=== PATIENT | female | born 1990 | race American Indian/Alaskan Native ===

== ENCOUNTER 2017-07-07 23:18 | Emergency (ER) | payer SELFPAY ==
[2017-07-07 23:54] VITALS: BP 107/73
[2017-07-08 00:37] LABS: Basophils % (Auto) 0.5 % (0.0-1.8); Eosinophils # (Auto) 0.1 K/mm3 (0.0-0.4); Eosinophils % (Auto) 1.8 % (0.0-4.3); Hematocrit 39.9 % (30.3-42.9); Hemoglobin 13.9 gm/dl (10.1-14.3); Lymphocytes # (Auto) 2.6 K/mm3 (1.2-5.4); Lymphocytes % (Auto) 36.4 % (13.4-35.0); Mean Corpuscular HGB Conc 35 % (30-34); Mean Corpuscular Hemoglobin 32 pg (28-32); Mean Corpuscular Volume 91 fl (79-97); Monocytes # (Auto) 0.3 K/mm3 (0.0-0.8); Monocytes % (Auto) 4.9 % (0.0-7.3); Platelet Count 207 K/mm3 (140-440); Red Blood Count 4.41 M/mm3 (3.65-5.03); Red Cell Distribution Width 13.1 % (13.2-15.2)
[2017-07-08 00:49] LABS: Bacteria,Urine 2+ /HPF (Negative); Bilirubin,Urine NEG (Negative); Blood,Urine NEG (Negative); Color,Urine Yellow (Yellow); Mucus,Urine 3+ /HPF; Protein,Urine <15 mg/dL mg/dL (Negative); RBC,Urine < 1.0 /HPF (0.0-6.0)
[2017-07-08 01:03] LABS: Alanine Aminotransferase 12 units/L (7-56); Albumin 4.7 g/dL (3.9-5); BUN/Creatinine Ratio 21; Blood Urea Nitrogen 19 mg/dL (7-17); Calcium 9.2 mg/dL (8.4-10.2); Hemolysis Index 5; Lipase 38 units/L (13-60)
== END 2017-07-08 04:43 | disposition left against medical advice (07) ==
LOC: ED 23:18
DX: R10.9 Unspecified abdominal pain (principal); Z53.21 Procedure and treatment not carried out due to patient leaving prior to being seen by health care provider
CPT/HCPCS: 36415; 80053; 81001; 83690; 85025

== ENCOUNTER 2018-02-18 14:49 | Emergency (ER) | payer MEDICAID, OTHER ==
[2018-02-18 16:29] VITALS: BP 116/74
[2018-02-18 17:20] LABS: Basophils % (Auto) 0.5 % (0.0-1.8); Eosinophils % (Auto) 0.8 % (0.0-4.3); Hematocrit 38.4 % (30.3-42.9); Hemoglobin 13.1 gm/dl (10.1-14.3); Lymphocytes # (Auto) 1.6 K/mm3 (1.2-5.4); Lymphocytes % (Auto) 26.8 % (13.4-35.0); Mean Corpuscular HGB Conc 34 % (30-34); Mean Corpuscular Hemoglobin 31 pg (28-32); Mean Corpuscular Volume 91 fl (79-97); Monocytes # (Auto) 0.3 K/mm3 (0.0-0.8); Monocytes % (Auto) 5.1 % (0.0-7.3); Platelet Count 247 K/mm3 (140-440); Red Blood Count 4.23 M/mm3 (3.65-5.03); Red Cell Distribution Width 12.7 % (13.2-15.2)
[2018-02-18 17:39] LABS: Bilirubin,Urine NEG (Negative); Blood,Urine NEG (Negative); Color,Urine Yellow (Yellow); Mucus,Urine 3+ /HPF
== END 2018-02-18 21:00 | disposition left against medical advice (07) ==
LOC: ED 14:49
DX: R10.9 Unspecified abdominal pain (principal); Z53.21 Procedure and treatment not carried out due to patient leaving prior to being seen by health care provider
CPT/HCPCS: 36415; 81001; 84702; 85025; 86850; 86900; 86901

== ENCOUNTER 2018-10-14 07:28 | Emergency (ER) | payer OTHER ==
[2018-10-14] MEDS ORDERED: ZOFRAN IV ONE ×2 (08:37→10:15)
[2018-10-14] MEDS ORDERED: NACL 0.9% 1000 ML 1,000 ML IV ONE ×2 (08:37→09:58)
--- NOTE | 2018-10-14 08:43 | Emergency Department Report ---
ED HPI - General Chief complaint: Nausea/Vomiting/Diarrhea Stated complaint: 10WKS/NAUSEA Time Seen by Provider: 10/14/18 08:30 Source: patient, EMS Mode of arrival: Wheelchair Limitations: No Limitations - History of Present Illness Initial comments: 27-year-old female , currently 10 weeks , presents to the ED with nausea and vomiting during her entire , worsening over the last 3 days. The patient denies fever, abdominal pain. Patient reports she is unable to keep anything down. Patient states she contacted her CLAIMS SUPPORT SPECIALIST and they were supposed to call in a prescription for nausea medicine, however when she arrived to the pharmacy it had not been called in. Patient reports generalized weakness, cramping in her hands. OB: [facility] MD Complaint: other (vomiting) -: days(s) (3) Severity: severe Consistency: constant Improves with: none Worsens with: eating Associated symptoms: nausea/vomiting. denies: vaginal bleeding Vaginal bleeding: none :: Yes Number of weeks : 10 Pre-nam care: followed by OB ([facility]) - Related Data : 6 Para: 3 Ab: 2 Previous Rx's Medication Instructions Recorded Last Taken Type Promethazine [Phenergan TAB] 25 mg PO Q6HR PRN #20 tab 10/14/18 Unknown Rx Promethazine [Phenergan] 25 mg MD Q6HR PRN #10 supp.rect 10/14/18 Unknown Rx Allergies Allergy/AdvReac Type Severity Reaction Status Date / Time No Known Allergies Allergy Verified 10/14/18 07:58 ED Review of Systems ROS: Stated complaint: 10WKS/NAUSEA Other details as noted in HPI Comment: All other systems reviewed and negative Constitutional: denies: chills, fever Gastrointestinal: nausea, vomiting. denies: abdominal pain, diarrhea Genitourinary: other (denies vag bleeding) ED Past Medical Hx - Social History Smoking Status: Never Smoker Substance Use Type: None - Medications Home Medications: Home Medications Medication Instructions Recorded Confirmed Last Taken Type Promethazine [Phenergan TAB] 25 mg PO Q6HR PRN #20 tab 10/14/18 Unknown Rx Promethazine [Phenergan] 25 mg MD Q6HR PRN #10 supp.rect 10/14/18 Unknown Rx ED Physical Exam - General Limitations: No Limitations General appearance: alert, in no apparent distress - Head Head exam: Present: atraumatic, normocephalic - Eye Eye exam: Present: normal appearance - ENT ENT exam: Present: mucous membranes moist - Neck Neck exam: Present: normal inspection - Respiratory Respiratory exam: Present: normal lung sounds bilaterally. Absent: respiratory distress - Cardiovascular Cardiovascular Exam: Present: normal rhythm, tachycardia - GI/Abdominal GI/Abdominal exam: Present: soft. Absent: distended, tenderness - Extremities Exam Extremities exam: Present: normal inspection - Neurological Exam Neurological exam: Present: alert, oriented X3 - Psychiatric Psychiatric exam: Present: normal affect, normal mood - Skin Skin exam: Present: warm, dry, intact, normal color ED Course Vital Signs 10/14/18 10/14/18 10/14/18 08:00 09:10 12:16 Temperature 98.3 F Pulse Rate 108 H 82 Respiratory 22 15 16 Rate Blood Pressure 114/70 Blood Pressure 104/65 [Right] O2 Sat by Pulse 100 99 Oximetry - Reevaluation(s) Reevaluation #1: 10/14/18 12:06 Pt has received 2L bolus NS. IV zofran. Tachycardia resolved. Potassium 2.8. Potassium repleted. Tolerated PO challenge. Remains free of abdominal pain. Will d/c home at this time. Pt advised to f/u with her CLAIMS SUPPORT SPECIALIST ED Medical Decision Making - Lab Data Result diagrams: 10/14/18 08:41 10/14/18 08:41 - Differential Diagnosis hypokalemia, dehydration, hyperemesis Critical care attestation.: If time is entered above; I have spent that time in minutes in the direct care of this critically ill patient, excluding procedure time. ED Disposition Clinical Impression: Hyperemesis gravidarum, Hypokalemia, Dehydration Disposition: -01 TO HOME OR SELFCARE Is pt being admited?: No Condition: Stable Instructions: Hyperemesis Gravidarum (ED), Dehydration (ED), Hypokalemia (ED) Prescriptions: Promethazine [Phenergan TAB] 25 mg PO Q6HR PRN #20 tab PRN Reason: Nausea Promethazine [Phenergan] 25 mg MD Q6HR PRN #10 supp.rect PRN Reason: Nausea Referrals: PRIMARY CARE, [Referring] - 3-5 Days Time of Disposition: 12:12
[2018-10-14 08:55] LABS: Basophils % (Auto) 0.4 % (0.0-1.8); Hematocrit 35.8 % (30.3-42.9); Hemoglobin 12.5 gm/dl (10.1-14.3); Lymphocytes # (Auto) 0.9 K/mm3 (1.2-5.4); Lymphocytes % (Auto) 13.9 % (13.4-35.0); Mean Corpuscular HGB Conc 35 % (30-34); Mean Corpuscular Volume 86 fl (79-97); Monocytes # (Auto) 0.2 K/mm3 (0.0-0.8); Monocytes % (Auto) 2.9 % (0.0-7.3); Platelet Count 212 K/mm3 (140-440); Red Blood Count 4.17 M/mm3 (3.65-5.03); Red Cell Distribution Width 14.6 % (13.2-15.2)
[2018-10-14 09:15] LABS: BUN/Creatinine Ratio 16; Blood Urea Nitrogen 11 mg/dL (7-17); Calcium 8.9 mg/dL (8.4-10.2); Hemolysis Index 30
[2018-10-14] MEDS ORDERED: K-DUR PO ONE (09:21)
[2018-10-14 12:18] VITALS: BP 104/65
[2018-10-14] MEDS ORDERED: ZOFRAN ODT ONE (12:56)
[2018-10-14] MEDS ORDERED: ZOFRAN ODT PO ONE (12:57)
== END 2018-10-14 12:41 | disposition home or self-care (01) ==
LOC: ED 07:28
DX: O21.0 Mild hyperemesis gravidarum (principal); O99.281 Endocrine, nutritional and metabolic diseases complicating pregnancy, first trimester; E87.6 Hypokalemia; E86.0 Dehydration; Z3A.10 10 weeks gestation of pregnancy
CPT/HCPCS: 36415; 80048; 84702; 85025; 96361; 96374; 96376; 99284; J2405; J7030; Q0162

== ENCOUNTER 2019-02-26 09:09 | Outpatient (CLI) | payer OTHER ==
[2019-02-26] MEDS ORDERED: LACTATED RINGERS 1,000 ML ONE (10:14)
[2019-02-26 10:31] VITALS: BP 116/69
[2019-02-26 11:03] LABS: Hematocrit 32.7 % (30.3-42.9); Hemoglobin 11.3 gm/dl (10.1-14.3); Mean Corpuscular HGB Conc 35 % (30-34); Mean Corpuscular Volume 90 fl (79-97); Platelet Count 203 K/mm3 (140-440); Red Blood Count 3.62 M/mm3 (3.65-5.03); Red Cell Distribution Width 13.1 % (13.2-15.2)
[2019-02-26 11:22] LABS: Alanine Aminotransferase 14 units/L (7-56); Albumin 3.9 g/dL (3.9-5); BUN/Creatinine Ratio 12; Blood Urea Nitrogen 7 mg/dL (7-17); Calcium 8.8 mg/dL (8.4-10.2); Hemolysis Index 7
[2019-02-26 11:46] LABS: Bacteria,Urine 2+ /HPF (Negative); Bilirubin,Urine NEG (Negative); Blood,Urine NEG (Negative); Color,Urine Yellow (Yellow); Mucus,Urine FEW /HPF; Protein,Urine <15 mg/dL mg/dL (Negative); Urobilinogen,Urine < 2.0 mg/dL (<2.0)
[2019-02-26] MEDS ORDERED: LACTATED RINGERS 500 ML IV ONE (11:55)
--- NOTE | 2019-02-26 14:15 | Ultrasound Report ---
ULTRASOUND BIOPHYSICAL PROFILE ULTRASOUND OB LIMITED INDICATION: BPP/CERVICAL LENGTH TECHNIQUE: Transabdominal ultrasound imaging. COMPARISON: None FINDINGS: breathing movement = 2 Gross body movement = 2 tone = 2 Qualitative amniotic fluid volume = 2 Total biophysical score = a/8 Amniotic fluid index was not measured. Presentation is cephalic. heart rate is 147 beats per minute. The cervix measures 3 cm. IMPRESSION: biophysical profile equals 8/8. The cervix measures 3 cm. Signer Name: Andrew Martin Jr, MD Signed: 02/26/2019 2:11 PM Workstation Name: [id number]
== END 2019-02-26 13:13 | disposition home or self-care (01) ==
LOC: TRG 09:09
PROVIDERS: ATTEND Obstetrics & Gynecology
DX: O26.892 Other specified pregnancy related conditions, second trimester (principal); R25.2 Cramp and spasm; O47.02 False labor before 37 completed weeks of gestation, second trimester; Z3A.24 24 weeks gestation of pregnancy
CPT/HCPCS: 36415; 59025; 76815; 76819; 80053; 81001; 85027; 96360; J7120

== ENCOUNTER 2019-03-12 05:30 | Outpatient (CLI) | payer OTHER ==
[2019-03-12] MEDS ORDERED: LACTATED RINGERS 1,000 ML IV ONE (05:54)
[2019-03-12 06:21] LABS: Bacteria,Urine 1+ /HPF (Negative); Bilirubin,Urine NEG (Negative); Blood,Urine NEG (Negative); Color,Urine Yellow (Yellow); Mucus,Urine 3+ /HPF; Protein,Urine <15 mg/dL mg/dL (Negative)
[2019-03-12] MEDS ORDERED: TERBUTALINE 1 MG/1 ML INJ SUB-Q ONE (07:00)
[2019-03-12 07:11] VITALS: BP 99/59
[2019-03-12] MEDS ORDERED: TERBUTALINE 1 MG/1 ML INJ ONE (07:17)
== END 2019-03-12 07:30 | disposition home or self-care (01) ==
LOC: TRG 05:30
PROVIDERS: ATTEND Obstetrics & Gynecology
DX: O26.892 Other specified pregnancy related conditions, second trimester (principal); R10.30 Lower abdominal pain, unspecified; O99.352 Diseases of the nervous system complicating pregnancy, second trimester; G43.909 Migraine, unspecified, not intractable, without status migrainosus; Z3A.26 26 weeks gestation of pregnancy
CPT/HCPCS: 81001; 96360; J7120; 96361; J3105

== ENCOUNTER 2019-03-20 19:12 | Outpatient (CLI) | payer OTHER ==
[2019-03-20] MEDS ORDERED: LACTATED RINGERS 500 ML IV ONE (20:06)
[2019-03-20 20:13] VITALS: BP 121/76
[2019-03-20 20:40] LABS: Bacteria,Urine 2+ /HPF (Negative); Bilirubin,Urine NEG (Negative); Blood,Urine NEG (Negative); Color,Urine Yellow (Yellow); Protein,Urine <15 mg/dL mg/dL (Negative); Urobilinogen,Urine < 2.0 mg/dL (<2.0)
== END 2019-03-20 23:15 | disposition home or self-care (01) ==
LOC: TRG 19:12
PROVIDERS: ATTEND Obstetrics & Gynecology
DX: O62.8 Other abnormalities of forces of labor (principal); O26.893 Other specified pregnancy related conditions, third trimester; Z3A.28 28 weeks gestation of pregnancy
CPT/HCPCS: 36415; 59025; 81001; 82731

== ENCOUNTER 2019-04-04 17:20 | Outpatient (CLI) | payer OTHER ==
[2019-04-04] MEDS ORDERED: TERBUTALINE 1 MG/1 ML INJ ONE (18:40)
[2019-04-04] MEDS: TERBUTALINE 1 MG/1 ML INJ SUB-Q SCH ×2 (18:40→19:01)
[2019-04-04] MEDS ORDERED: LACTATED RINGERS 500 ML IV ONE ×2 (18:54→19:00)
[2019-04-04] MEDS ORDERED: ACETAMINOPHEN 325 MG TAB PO ONE (20:15)
[2019-04-04 20:23] VITALS: BP 122/61
== END 2019-04-04 20:30 | disposition home or self-care (01) ==
LOC: TRG 17:20
PROVIDERS: ATTEND Obstetrics & Gynecology
DX: O62.9 Abnormality of forces of labor, unspecified (principal); O99.013 Anemia complicating pregnancy, third trimester; D64.9 Anemia, unspecified; Z3A.30 30 weeks gestation of pregnancy
CPT/HCPCS: 96360; 96372; J3105; J7120

== ENCOUNTER 2019-04-15 08:53 | Outpatient (CLI) | payer OTHER ==
[2019-04-15 10:30] LABS: Hematocrit 27.6 % (30.3-42.9); Hemoglobin 9.5 gm/dl (10.1-14.3); Mean Corpuscular HGB Conc 34 % (30-34); Mean Corpuscular Volume 89 fl (79-97); Platelet Count 142 K/mm3 (140-440); Red Cell Distribution Width 13.1 % (13.2-15.2)
[2019-04-15 10:50] LABS: Alanine Aminotransferase 9 units/L (7-56); Uric Acid 2.9 mg/dL (3.5-7.6)
[2019-04-15 11:22] LABS: Bacteria,Urine 1+ /HPF (Negative); Bilirubin,Urine NEG (Negative); Blood,Urine NEG (Negative); Color,Urine Yellow (Yellow); Mucus,Urine FEW /HPF; Protein,Urine <15 mg/dL mg/dL (Negative); Urobilinogen,Urine < 2.0 mg/dL (<2.0)
[2019-04-15 12:29] VITALS: BP 107/63
[2019-04-15] MEDS ORDERED: oxyCODONE /ACETAMINOPHEN 5-325MG TAB PO PRN (12:30)
== END 2019-04-15 12:20 | disposition home or self-care (01) ==
LOC: TRG 08:53
PROVIDERS: ATTEND Obstetrics & Gynecology
DX: O47.03 False labor before 37 completed weeks of gestation, third trimester (principal); Z3A.37 37 weeks gestation of pregnancy
CPT/HCPCS: 36415; 81001; 82565; 83615; 84450; 84460; 84550; 85027

== ENCOUNTER 2019-04-30 23:44 | Outpatient (CLI) | payer OTHER ==
[2019-04-30] MEDS ORDERED: LACTATED RINGERS 500 ML IV ONE (23:52)
[2019-05-01 00:17] VITALS: BP 101/71
[2019-05-01 00:59] LABS: Bacteria,Urine 2+ /HPF (Negative); Bilirubin,Urine NEG (Negative); Blood,Urine NEG (Negative); Color,Urine Yellow (Yellow); Mucus,Urine 3+ /HPF
== END 2019-05-01 01:10 | disposition home or self-care (01) ==
LOC: TRG 23:44
PROVIDERS: ATTEND Obstetrics & Gynecology
DX: O62.8 Other abnormalities of forces of labor (principal); Z3A.33 33 weeks gestation of pregnancy
CPT/HCPCS: 59025; 81001

== ENCOUNTER 2019-05-17 20:40 | Outpatient (CLI) | payer OTHER ==
[2019-05-17 22:43] LABS: Bacteria,Urine 2+ /HPF (Negative); Bilirubin,Urine NEG (Negative); Blood,Urine NEG (Negative); Color,Urine Yellow (Yellow); Mucus,Urine FEW /HPF; Protein,Urine <15 mg/dL mg/dL (Negative)
[2019-05-17 22:50] VITALS: BP 101/70
--- NOTE | 2019-05-18 06:00 | Progress Note ---
Assessment and Plan A: at 36 1/7 weeks gestation. False labor; not in active labor at this time. P: Discussed with patient comfort measures, warning signs of late , daily movement counting, and signs of labor. Advised patient to follow up at [facility] tomorrow. Subjective - Subjective Date of service: 05/17/19 Principal diagnosis: at 36 1/7 weeks Interval history: Triage note for evening of 05/17/2019 28 year old presented to L&D triage to rule out labor. Patient reports feeling vaginal pressure for a few days; thinks baby has dropped. Patient reports active movement. Denies leaking of water or vaginal bleeding. Reports occasional mild contraction but no regular contractions. Denies urinary symptoms. Denies constipation. Denies falls or abdominal trauma. Denies any abdominal pain. Receives care at [facility] and was seen this past week. Received [place] injections during this due to history of with a previous . Patient reports: movement normal, no loss of fluid, no vaginal bleeding Objective - Vital Signs Vital Signs: Vital Signs - 12hr 05/17/19 05/17/19 05/17/19 21:20 22:28 22:49 Pulse Rate 86 88 93 H Blood Pressure 95/64 102/68 101/70 - Exam Abdomen: Present: normal appearance, soft. Absent: distention, tenderness, guarding, rigidity Uterus: Present: normal, fundal height above umbilicus (S=D). Absent: tenderness FHR: category 1 Uterine Contraction Monitor Mode: External Cervical Dilatation: 1 (thick, posterior) station: -1 Uterine Contraction Pattern: Irregular Uterine Contraction Intensity: Mild Extremities: normal - Labs Labs: Abnormal Labs 05/17/19 21:57 Urine WBC (Auto) 9.0 H Laboratory Results - last 24 hr 05/17/19 21:57 Urine Color Yellow Urine Turbidity Slightly-cloudy Urine pH 6.0 Ur Specific [place] 1.015 Urine Protein <15 mg/dl Urine Glucose (UA) Neg Urine Ketones Neg Urine Blood Neg Urine Nitrite Neg Urine Bilirubin Neg Urine Urobilinogen 2.0 Ur Leukocyte Esterase Neg Urine WBC (Auto) 9.0 H Urine RBC (Auto) 3.0 U Epithel Cells (Auto) 4.0 Urine Bacteria (Auto) 2+ Urine Mucus Few
== END 2019-05-17 23:06 | disposition home or self-care (01) ==
LOC: TRG 20:40
PROVIDERS: ATTEND Obstetrics & Gynecology
DX: O47.03 False labor before 37 completed weeks of gestation, third trimester (principal); Z3A.36 36 weeks gestation of pregnancy
CPT/HCPCS: 81001; 87086

== ENCOUNTER 2019-05-25 11:57 | Outpatient (CLI) | payer OTHER ==
[2019-05-25 12:22] VITALS: BP 108/65
== END 2019-05-25 12:54 | disposition home or self-care (01) ==
LOC: TRG 11:57
PROVIDERS: ATTEND Obstetrics & Gynecology
DX: O47.1 False labor at or after 37 completed weeks of gestation (principal); Z3A.37 37 weeks gestation of pregnancy
CPT/HCPCS: 59025

== ENCOUNTER 2019-05-29 05:37 | Outpatient (CLI) | payer OTHER ==
[2019-05-29 06:32] VITALS: BP 113/80
== END 2019-05-29 09:46 | disposition home or self-care (01) ==
LOC: TRG 05:37
PROVIDERS: ATTEND Obstetrics & Gynecology
DX: O62.8 Other abnormalities of forces of labor (principal); Z3A.37 37 weeks gestation of pregnancy
CPT/HCPCS: 59025

== ENCOUNTER 2019-06-01 18:18 | Outpatient (CLI) | payer OTHER ==
[2019-06-01 19:19] LABS: Bacteria,Urine 1+ /HPF (Negative); Bilirubin,Urine NEG (Negative); Blood,Urine NEG (Negative); Color,Urine Yellow (Yellow); Mucus,Urine 2+ /HPF; Protein,Urine <15 mg/dL mg/dL (Negative)
[2019-06-01 19:42] VITALS: BP 111/67
[2019-06-01] MEDS ORDERED: ACETAMINOPHEN 500 MG TAB PO ONE (19:47)
== END 2019-06-01 20:15 | disposition home or self-care (01) ==
LOC: TRG 18:18
PROVIDERS: ATTEND Obstetrics & Gynecology
DX: O47.1 False labor at or after 37 completed weeks of gestation (principal); Z3A.38 38 weeks gestation of pregnancy
CPT/HCPCS: 59025; 81001

== ENCOUNTER 2019-06-05 01:24 | Outpatient (CLI) | payer OTHER ==
[2019-06-05 02:19] VITALS: BP 109/67
== END 2019-06-05 04:50 | disposition home or self-care (01) ==
LOC: TRG 01:24
PROVIDERS: ATTEND Obstetrics & Gynecology
DX: O47.1 False labor at or after 37 completed weeks of gestation (principal); Z3A.38 38 weeks gestation of pregnancy
CPT/HCPCS: 59025

== ENCOUNTER 2020-03-12 11:10 | Emergency (ER) | payer OTHER ==
[2020-03-12] MEDS ORDERED: DICYCLOMINE 20 MG/2 ML INJ IM ONE (12:14)
[2020-03-12] MEDS ORDERED: ONDANSETRON 4 MG/2 ML INJ IV ONE (12:14)
[2020-03-12] MEDS ORDERED: SODIUM CHLORIDE 0.9% 1000 ML 1,000 ML IV ONE (12:14)
[2020-03-12 12:30] LABS: Hematocrit 37.3 % (30.3-42.9); Hemoglobin 13.2 gm/dl (10.1-14.3); Mean Corpuscular HGB Conc 35 % (30-34); Mean Corpuscular Volume 89 fl (79-97); Platelet Count 209 K/mm3 (140-440); Red Cell Distribution Width 14.6 % (13.2-15.2)
[2020-03-12 12:53] LABS: Alanine Aminotransferase 12 units/L (7-56); Albumin 4.8 g/dL (3.9-5); BUN/Creatinine Ratio 15; Blood Urea Nitrogen 12 mg/dL (7-17); Calcium 9.6 mg/dL (8.4-10.2); Hemolysis Index 5
[2020-03-12] MEDS ORDERED: POTASSIUM CHLORIDE ER 20 MEQ TAB PO ONE (13:03)
[2020-03-12 13:41] LABS: Basophils % (Manual) 0 % (0.0-1.8); Eosinophils % (Manual) 0 % (0.0-4.3); Total Cells Counted 100
[2020-03-12 13:42] LABS: RBC Morphology Normal
[2020-03-12] MEDS ORDERED: diphenhydrAMINE 50 MG/ML VIAL IV ONE (13:46)
[2020-03-12] MEDS ORDERED: METOCLOPRAMIDE 10 MG/2 ML INJ IV ONE (13:46)
[2020-03-12 14:05] LABS: Bilirubin,Urine NEG (Negative); Blood,Urine NEG (Negative); Color,Urine Yellow (Yellow); Mucus,Urine 3+ /HPF
--- NOTE | 2020-03-12 14:47 | Emergency Department Report ---
ED N/V/D HPI - General Chief complaint: Abdominal Pain Stated complaint: ABDOMINAL PAIN Time Seen by Provider: 03/12/20 12:08 Source: patient Mode of arrival: Wheelchair Limitations: No Limitations - History of Present Illness Initial comments: Patient is a 29-year-old female presents emergency room with complaints of nausea, vomiting, diarrhea that began yesterday. She has associated generalized abdominal cramping. She denies any fever, hematochezia, hematemesis, melena, dysuria, abnormal vaginal discharge, vaginal irritation. She states last thing she ate was some pasta. She states that no one else got sick. She denies any sick contacts or recent travel. No past medical history. No allergies to medications. She states that she has a IUD for control. - Related Data Previous Rx's Medication Instructions Recorded Last Taken Type Ferrous Sulfate [Feosol 325 MG tab] 325 mg PO BID 30 Days #60 tablet 06/09/19 Unknown Rx Ciprofloxacin HCl [Ciprofloxacin 500 mg PO BID 7 Days #14 tab 03/12/20 Unknown Rx TAB] Promethazine [Phenergan] 25 mg PO Q8HR PRN #10 tab 03/12/20 Unknown Rx metroNIDAZOLE [Flagyl] 500 mg PO BID 7 Days #14 tab 03/12/20 Unknown Rx Allergies Allergy/AdvReac Type Severity Reaction Status Date / Time No Known Allergies Allergy Verified 03/12/19 05:53 ED Review of Systems ROS: Stated complaint: ABDOMINAL PAIN Other details as noted in HPI Comment: All other systems reviewed and negative ED Past Medical Hx - Past Medical History Previous Medical History?: No Hx Hypertension: No Hx Heart Attack/AMI: No Hx Congestive Heart Failure: No Hx Diabetes: No Hx Deep Vein Thrombosis: No Hx Liver Disease: No Hx Renal Disease: No Hx Sickle Cell Disease: No Hx Seizures: No Hx Asthma: No Hx COPD: No Hx HIV: No - Surgical History Past Surgical History?: No Hx Pacemaker: No Hx Internal Defibrillator: No - Social History Smoking Status: Never Smoker - Medications Home Medications: Home Medications Medication Instructions Recorded Confirmed Last Taken Type Ferrous Sulfate [Feosol 325 MG tab] 325 mg PO BID 30 Days #60 tablet 06/09/19 Unknown Rx Ciprofloxacin HCl [Ciprofloxacin 500 mg PO BID 7 Days #14 tab 03/12/20 Unknown Rx TAB] Promethazine [Phenergan] 25 mg PO Q8HR PRN #10 tab 03/12/20 Unknown Rx metroNIDAZOLE [Flagyl] 500 mg PO BID 7 Days #14 tab 03/12/20 Unknown Rx ED Physical Exam - General Limitations: No Limitations General appearance: alert, in no apparent distress - Head Head exam: Present: atraumatic, normocephalic - Eye Eye exam: Present: normal appearance - ENT ENT exam: Present: mucous membranes moist - Respiratory Respiratory exam: Present: normal lung sounds bilaterally. Absent: respiratory distress, wheezes, rales, rhonchi, stridor, chest wall tenderness, accessory muscle use, decreased breath sounds, prolonged expiratory - Cardiovascular Cardiovascular Exam: Present: regular rate, normal rhythm, normal heart sounds. Absent: systolic murmur, diastolic murmur, rubs, gallop - GI/Abdominal GI/Abdominal exam: Present: soft, normal bowel sounds. Absent: distended, tenderness, guarding, rebound, rigid - Neurological Exam Neurological exam: Present: alert, oriented X3 - Psychiatric Psychiatric exam: Present: normal affect, normal mood - Skin Skin exam: Present: warm, dry, intact ED Course Vital Signs 03/12/20 03/12/20 03/12/20 11:26 15:17 15:49 Temperature 97.7 F Pulse Rate 66 64 Respiratory 16 18 Rate Blood Pressure 114/95 Blood Pressure 137/95 [Right] O2 Sat by Pulse 99 99 100 Oximetry ED Medical Decision Making - Lab Data Result diagrams: 03/12/20 12:23 03/12/20 12:23 Lab Results 03/12/20 03/12/20 03/12/20 Range/Units 12:23 12:23 12:23 WBC 10.5 (4.5-11.0) K/mm3 RBC 4.20 (3.65-5.03) M/mm3 Hgb 13.2 (10.1-14.3) gm/dl Hct 37.3 (30.3-42.9) % MCV 89 (79-97) fl MCH 32 (28-32) pg MCHC 35 H (30-34) % RDW 14.6 (13.2-15.2) % Plt Count 209 (140-440) K/mm3 Add Manual Diff Complete Total Counted 100 Seg Neutrophils % Key Sander Seg Neuts % (Manual) 90.0 H (40.0-70.0) % Band Neutrophils % 0 % Lymphocytes % (Manual) 5.0 L (13.4-35.0) % Reactive Lymphs % (Man) 0 % Monocytes % (Manual) 5.0 (0.0-7.3) % Eosinophils % (Manual) 0 (0.0-4.3) % Basophils % (Manual) 0 (0.0-1.8) % Metamyelocytes % 0 % Myelocytes % 0 % Promyelocytes % 0 % Blast Cells % 0 % Nucleated RBC % Not Reportable Seg Neutrophils # Man 9.5 H (1.8-7.7) K/mm3 Band Neutrophils # 0.0 K/mm3 Lymphocytes # (Manual) 0.5 L (1.2-5.4) K/mm3 Abs React Lymphs (Man) 0.0 K/mm3 Monocytes # (Manual) 0.5 (0.0-0.8) K/mm3 Eosinophils # (Manual) 0.0 (0.0-0.4) K/mm3 Basophils # (Manual) 0.0 (0.0-0.1) K/mm3 Metamyelocytes # 0.0 K/mm3 Myelocytes # 0.0 K/mm3 Promyelocytes # 0.0 K/mm3 Blast Cells # 0.0 K/mm3 WBC Morphology Not Reportable Hypersegmented Neuts Not Reportable Hyposegmented Neuts Not Reportable Hypogranular Neuts Not Reportable Smudge Cells Not Reportable Toxic Granulation Not Reportable Toxic Vacuolation Not Reportable Dohle Bodies Not Reportable Pelger-Huet Anomaly Not Reportable Radha Rods Not Reportable Platelet Estimate Not Reportable Clumped Platelets Not Reportable Plt Clumps, EDTA Not Reportable Large Platelets Not Reportable Giant Platelets Not Reportable Platelet Satelliting Not Reportable Plt Morphology Comment Not Reportable RBC Morphology Normal Dimorphic RBCs Not Reportable Polychromasia Not Reportable Hypochromasia Not Reportable Poikilocytosis Not Reportable Anisocytosis Not Reportable Microcytosis Not Reportable Macrocytosis Not Reportable Spherocytes Not Reportable Pappenheimer Bodies Not Reportable Sickle Cells Not Reportable Target Cells Not Reportable Tear Drop Cells Not Reportable Ovalocytes Not Reportable Helmet Cells Not Reportable Field-Delanson Bodies Not Reportable Hurricane Rings Not Reportable [place] Cells Not Reportable Bite Cells Not Reportable Crenated Cell Not Reportable Elliptocytes Not Reportable Acanthocytes (Spur) Not Reportable Rouleaux Not Reportable Hemoglobin C Crystals Not Reportable Schistocytes Not Reportable Malaria parasites Not Reportable Aly Bodies Not Reportable Hem Pathologist Commnt No Sodium 141 (137-145) mmol/L Potassium 3.2 L (3.6-5.0) mmol/L Chloride 101.9 (98-107) mmol/L Carbon Dioxide 20 L (22-30) mmol/L Anion Gap 22 mmol/L BUN 12 (7-17) mg/dL Creatinine 0.8 (0.6-1.2) mg/dL Estimated GFR > 60 ml/min BUN/Creatinine Ratio 15 % Glucose 138 H (65-100) mg/dL Calcium 9.6 (8.4-10.2) mg/dL Total Bilirubin 0.40 (0.1-1.2) mg/dL AST 13 (5-40) units/L ALT 12 (7-56) units/L Alkaline Phosphatase 77 (35-129) units/L Total Protein 8.0 (6.3-8.2) g/dL Albumin 4.8 (3.9-5) g/dL Albumin/Globulin Ratio 1.5 % Lipase 15 (13-60) units/L HCG, Qual Negative (Negative) Urine Color (Yellow) Urine Turbidity (Clear) Urine pH (5.0-7.0) Ur Specific [place] (1.003-1.030) Urine Protein (Negative) mg/dL Urine Glucose (UA) (Negative) mg/dL Urine Ketones (Negative) mg/dL Urine Blood (Negative) Urine Nitrite (Negative) Urine Bilirubin (Negative) Urine Urobilinogen (<2.0) mg/dL Ur Leukocyte Esterase (Negative) Urine WBC (Auto) (0.0-6.0) /HPF Urine RBC (Auto) (0.0-6.0) /HPF U Epithel Cells (Auto) (0-13.0) /HPF Urine Mucus /HPF 03/12/20 03/12/20 Range/Units 12:23 Unknown WBC (4.5-11.0) K/mm3 RBC (3.65-5.03) M/mm3 Hgb (10.1-14.3) gm/dl Hct (30.3-42.9) % MCV (79-97) fl MCH (28-32) pg MCHC (30-34) % RDW (13.2-15.2) % Plt Count (140-440) K/mm3 Add Manual Diff Total Counted Seg Neutrophils % Seg Neuts % (Manual) (40.0-70.0) % Band Neutrophils % % Lymphocytes % (Manual) (13.4-35.0) % Reactive Lymphs % (Man) % Monocytes % (Manual) (0.0-7.3) % Eosinophils % (Manual) (0.0-4.3) % Basophils % (Manual) (0.0-1.8) % Metamyelocytes % % Myelocytes % % Promyelocytes % % Blast Cells % % Nucleated RBC % Seg Neutrophils # Man (1.8-7.7) K/mm3 Band Neutrophils # K/mm3 Lymphocytes # (Manual) (1.2-5.4) K/mm3 Abs React Lymphs (Man) K/mm3 Monocytes # (Manual) (0.0-0.8) K/mm3 Eosinophils # (Manual) (0.0-0.4) K/mm3 Basophils # (Manual) (0.0-0.1) K/mm3 Metamyelocytes # K/mm3 Myelocytes # K/mm3 Promyelocytes # K/mm3 Blast Cells # K/mm3 WBC Morphology TNR Hypersegmented Neuts Hyposegmented Neuts Hypogranular Neuts Smudge Cells Toxic Granulation Toxic Vacuolation Dohle Bodies Pelger-Huet Anomaly Radha Rods Platelet Estimate Clumped Platelets Plt Clumps, EDTA Large Platelets Giant Platelets Platelet Satelliting Plt Morphology Comment RBC Morphology Dimorphic RBCs Polychromasia Hypochromasia Poikilocytosis Anisocytosis Microcytosis Macrocytosis Spherocytes Pappenheimer Bodies Sickle Cells Target Cells Tear Drop Cells Ovalocytes Helmet Cells Field-Delanson Bodies Hurricane Rings Viraj Cells Bite Cells Crenated Cell Elliptocytes Acanthocytes (Spur) Rouleaux Hemoglobin C Crystals Schistocytes Malaria parasites Aly Bodies Hem Pathologist Commnt Sodium (137-145) mmol/L Potassium (3.6-5.0) mmol/L Chloride (98-107) mmol/L Carbon Dioxide (22-30) mmol/L Anion Gap mmol/L BUN (7-17) mg/dL Creatinine (0.6-1.2) mg/dL Estimated GFR ml/min BUN/Creatinine Ratio % Glucose (65-100) mg/dL Calcium (8.4-10.2) mg/dL Total Bilirubin (0.1-1.2) mg/dL AST (5-40) units/L ALT (7-56) units/L Alkaline Phosphatase (35-129) units/L Total Protein (6.3-8.2) g/dL Albumin (3.9-5) g/dL Albumin/Globulin Ratio % Lipase (13-60) units/L HCG, Qual (Negative) Urine Color Yellow (Yellow) Urine Turbidity Clear (Clear) Urine pH 7.0 (5.0-7.0) Ur Specific [place] 1.025 (1.003-1.030) Urine Protein 100 mg/dl (Negative) mg/dL Urine Glucose (UA) Neg (Negative) mg/dL Urine Ketones 80 (Negative) mg/dL Urine Blood Neg (Negative) Urine Nitrite Neg (Negative) Urine Bilirubin Neg (Negative) Urine Urobilinogen 4.0 (<2.0) mg/dL Ur Leukocyte Esterase Neg (Negative) Urine WBC (Auto) 3.0 (0.0-6.0) /HPF Urine RBC (Auto) 3.0 (0.0-6.0) /HPF U Epithel Cells (Auto) 13.0 (0-13.0) /HPF Urine Mucus 3+ /HPF - Radiology Data Radiology results: report reviewed Ordering Physician: FARZANEH MELCHOR Date of Service: 03/12/20 Procedure(s): CT abdomen pelvis w con Accession Number(s): [id number] cc: FARZANEH MELCHOR CT abdomen pelvis w con INDICATION / CLINICAL INFORMATION: Generalized abdominal pain with nausea vomiting and diarrhea for 2 days. TECHNIQUE: Axial CT imaging of abdomen and pelvis was obtained with IV contrast. Coronal and sagittal reformatted imaging obtained and reviewed. All CT scans at this location are performed using CT dose reduction for ALARA by means of automated exposure control. COMPARISON: None available. FINDINGS: CT abdomen with IV contrast demonstrates normal appearance of the liver, spleen, pancreas, kidneys, and adrenal glands. Small area of focal fatty infiltration is seen in the left lobe the liver adjacent to the falciform ligament. No renal mass or hydronephrosis identified. Gallbladder is grossly unremarkable. No biliary dilatation. CT pelvis with contrast demonstrates IUD within the uterus. IUD is extremely superficially located within the uterus and may be within the myometrium. No pelvic mass, free fluid, or focal inflam matory changes noted. A normal appendix is present. Trace amount of free fluid is present in the posterior cul-de-sac. There is mild inflammatory change throughout the majority of the colon suggesting very mild colitis. Visualized lung bases are clear. No significant osseous abnormality noted. IMPRESSION: 1. Probable mild colitis. Please clinically correlate with patient's symptoms. 2. Incidentally noted is potential malposition of the IUD. IUD is markedly superficially located within the uterine fundus region and appears to be at least partially, within the myometrium rather than the endometrium. I do not see evidence of perforation, however. Signer Name: Yulisa Rashid MD Signed: 03/12/2020 3:10 PM Workstation Name: [id number] Transcribed By: Dictated By: Yulisa Rashid MD Electronically Authenticated By: Yulisa Rashid MD Signed Date/Time: 03/12/20 1510 DD/ 1505 TD/TT: - Medical Decision Making Patient is a 29-year-old female presents emergency room with complaints of nausea, vomiting, diarrhea that began yesterday. She has associated generalized abdominal cramping. She denies any fever, hematochezia, hematemesis, melena, dysuria, abnormal vaginal discharge, vaginal irritation. She states last thing she ate was some pasta. She states that no one else got sick. She denies any sick contacts or recent travel. No past medical history. No allergies to medications. She states that she has a IUD for control. Vitals are normal. On exam no abdominal tenderness palpation, no guarding, no rebound, no rigidity, normal bowel sounds. Labs are normal. UA is within normal limits. Patient given 1 L fluids, Zofran, Bentyl. Patient continued to have discomfort and vomiting. Patient given Benadryl and Reglan and CT abdomen pelvis ordered to rule out intra-abdominal pathology. CT abdomen pelvis with IV contrast shows 1. Probable mild colitis. Please clinically correlate with patient's symptoms. 2. Incidentally noted is potential malposition of the IUD. IUD is markedly superficially located within the uterine fundus region and appears to be at least partially, within the myometrium rather than the endometrium. I do not see evidence of perforation, however. After medications symptoms have completely resolved and patient feels much better and ready to go home. She had no further episodes of vomiting, she is able to tolerate p.o. intake. Discussed all results with patient and answered questions. Patient will be treated for her mild colitis. Discussed the malposition of her IUD with patient. Patient given prescription for Cipro, Flagyl, Phenergan. advised pt Please take medication as prescribed. Increase your water intake. Eat a bland liquid diet and slowly advance your diet as tolerated. Follow up with your primary care doctor. Follow-up with SALES AND MARKETING COORDINATOR regarding the potential malposition of your IUD. Return to emergency room for any new or worsening symptoms. - Differential Diagnosis Gastroenteritis, colitis, cholecystitis, UTI, diverticulitis, appendicitis Critical care attestation.: If time is entered above; I have spent that time in minutes in the direct care of this critically ill patient, excluding procedure time. ED Disposition Clinical Impression: Nausea vomiting and diarrhea, Abdominal cramping, Colitis Malpositioned IUD Qualifiers: Encounter type: initial encounter Qualified Code(s): T83.32XA - Displacement of intrauterine contraceptive device, initial encounter Disposition: DC-01 TO HOME OR SELFCARE Is pt being admited?: No Does the pt Need Aspirin: No Condition: Stable Instructions: Gastroenteritis (ED), Infectious Colitis (ED) Additional Instructions: Please take medication as prescribed. Increase your water intake. Eat a bland liquid diet and slowly advance your diet as tolerated. Follow up with your primary care doctor. Follow-up with SALES AND MARKETING COORDINATOR regarding the potential malposition of your IUD. Return to emergency room for any new or worsening symptoms. Prescriptions: Ciprofloxacin HCl [Ciprofloxacin TAB] 500 mg PO BID 7 Days #14 tab metroNIDAZOLE [Flagyl] 500 mg PO BID 7 Days #14 tab Promethazine [Phenergan] 25 mg PO Q8HR PRN #10 tab PRN Reason: Nausea And Vomiting Referrals: PRASANTH ANDREWS MD [Primary Care Provider] - 2-3 Days your, farmer general [Other] - 2-3 Days Time of Disposition: 15:38 Print Language: [place] LUCIAN
--- NOTE | 2020-03-12 15:14 | Cat Scan Report ---
CT abdomen pelvis w con INDICATION / CLINICAL INFORMATION: Generalized abdominal pain with nausea vomiting and diarrhea for 2 days. TECHNIQUE: Axial CT imaging of abdomen and pelvis was obtained with IV contrast. Coronal and sagittal reformatte d imaging obtained and reviewed. All CT scans at this location are performed using CT dose reductio n for ALARA by means of automated exposure control. COMPARISON: None available. FINDINGS: CT abdomen with IV contrast demonstrates normal appearance of the liver, spleen, pancreas, kidneys, a nd adrenal glands. Small area of focal fatty infiltration is seen in the left lobe the liver adjacent to the falciform ligament. No renal mass or hydronephrosis identified. Gallbladder is grossly unrema rkable. No biliary dilatation. CT pelvis with contrast demonstrates IUD within the uterus. IUD is extremely superficially located wi thin the uterus and may be within the myometrium. No pelvic mass, free fluid, or focal inflammatory c hanges noted. A normal appendix is present. Trace amount of free fluid is present in the posterior cu l-de-sac. There is mild inflammatory change throughout the majority of the colon suggesting very mild colitis. Visualized lung bases are clear. No significant osseous abnormality noted. IMPRESSION: 1. Probable mild colitis. Please clinically correlate with patient's symptoms. 2. Incidentally noted is potential malposition of the IUD. IUD is markedly superficially located with in the uterine fundus region and appears to be at least partially, within the myometrium rather than the endometrium. I do not see evidence of perforation, however. Signer Name: Yulisa Rashid MD Signed: 03/12/2020 3:10 PM Workstation Name: [id number]
[2020-03-12 15:56] VITALS: BP 114/95
== END 2020-03-12 15:51 | disposition home or self-care (01) ==
LOC: ED 11:10
DX: T83.32XA Displacement of intrauterine contraceptive device, initial encounter (principal); K52.9 Noninfective gastroenteritis and colitis, unspecified; R11.2 Nausea with vomiting, unspecified; Z79.2 Long term (current) use of antibiotics; Z79.899 Other long term (current) drug therapy; Y92.89 Other specified places as the place of occurrence of the external cause
CPT/HCPCS: 36415; 74177; 80053; 81001; 83690; 84703; 85007; 85025; 96361; 96372; 96374; 96375; 99284; J0500; J1200; J2405; J2765; J7030; Q9967

== ENCOUNTER 2020-03-22 10:39 | Day surgery (SDC) | payer OTHER ==
--- NOTE | 2020-03-22 10:51 | History and Physical Report ---
History of Present Illness Date of examination: 03/18/20 History of present illness: This is a 29-year-old with a retained Mirena IUD. Patient is unhappy with the Mirena. Ultrasound confirmed IUD is in the uterus. Unfortunately was not able to be removed in the office. As a result, patient requires a hysteroscopic IUD removal. Past History Past Medical History: other (anemia, migraines) Past Surgical History: D&C Social history: no significant social history - Obstetrical History : 6 Para: 4 Number of Living Children: 4 Medications and Allergies Allergies Allergy/AdvReac Type Severity Reaction Status Date / Time No Known Allergies Allergy Verified 03/21/20 10:02 Home Medications Medication Instructions Recorded Confirmed Last Taken Type No Known Home Medications [No 03/21/20 03/21/20 Unknown History Reported Home Medications] Review of Systems All systems: negative (Except HPI) - Physical Exam Vulva: both: normal Vagina: Positive: normal moisture. Negative: discharge Cervix: Negative: lesion, discharge Results All other labs normal. Assessment and Plan - Patient Problems (1) Malpositioned IUD Current Visit: No Status: Acute Plan to address problem: Patient for hysteroscopic IUD removal. Patient fully consented for the surgery. Risks, benefits, and alternatives were all discussed with the patient including risk of bleeding, infection, and potential for injury. Patient understands and accepts these risks. Patient agrees to proceed with surgery. All questions were answered.
[2020-03-22] MEDS ORDERED: ONDANSETRON 4 MG/2 ML INJ IV PRN (11:26)
[2020-03-22] MEDS ORDERED: HYDROmorphone 1 MG/1 ML INJ IV PRN ×2 (11:26)
--- NOTE | 2020-03-22 11:27 | Anesthesia Day of Surgery ---
Anesthesia Day of Surgery - Day of Surgery Patient Examined: Yes Patient H&P Reviewed: Yes Patient is NPO: Yes
--- NOTE | 2020-03-22 11:28 | Anesthesia Consultation ---
Anesthesia Consult and Med Hx Date of service: 03/22/20 - Airway Anesthetic Teeth Evaluation: Chipped ROM Head & Neck: Adequate Mental/Hyoid Distance: Adequate Mallampati Class: Class II Intubation Access Assessment: Good - Pre-Operative Health Status ASA Pre-Surgery Classification: ASA2 Proposed Anesthetic Plan: General - Pulmonary Hx Smoking: No Hx Asthma: No Hx Respiratory Symptoms: No SOB: No COPD: No Hx Pneumonia: No Hx Sleep Apnea: No - Cardiovascular System Hx Hypertension: No Hx Coronary Artery Disease: No Hx Heart Attack/AMI: No Hx Angina: No Hx Percutaneous Transluminal Coronary Angioplasty (PTCA): No Hx Cardia Arrhythmia: No Hx Pacemaker: No Hx Internal Defibrillator: No Hx Valvular Heart Disease: No Hx Heart Murmur: No Hx Peripheral Vascular Disease: No - Central Nervous System Hx Neuromuscular Disorder: Yes (Migraines) Hx Seizures: No CVA: No Hx Back Pain: No Hx Psychiatric Problems: No - Gastrointestinal Hx Ulcer: No Hx Gastroesophageal Reflux Disease: Yes - Endocrine Hx Renal Disease: No Hx End Stage Renal Disease: No Hx Cirrhosis: No Hx Liver Disease: No Hx Insulin Dependent Diabetes: No Hx Non-Insulin Dependent Diabetes: No Hx Thyroid Disease: No Hx Hypothyroidism: No Hx Hyperthyroidism: No - Hematic Hx Anemia: Yes Hx Sickle Cell Disease: No - Other Systems Hx Alcohol Use: No Hx Substance Use: No Hx Cancer: No Hx Obesity: No
[2020-03-22] MEDS ORDERED: LACTATED RINGERS 1,000 ML IV SCH (12:00)
[2020-03-22] MEDS ORDERED: MIDAZOLAM 2 MG/2 ML INJ IV NR (12:00)
[2020-03-22] MEDS ORDERED: HYDROmorphone 1 MG/1 ML INJ ONE (12:11)
[2020-03-22] MEDS ORDERED: LIDOCAINE MPF (2%) 20 MG/1 ML VIAL 5 ML ONE (12:11)
[2020-03-22] MEDS ORDERED: propofoL 200 MG/20 ML VIAL IV ONE (12:11)
[2020-03-22] MEDS ORDERED: SODIUM CHLORIDE 0.9% IRRIG SOLN 3000 ML IR ONE (12:42)
[2020-03-22] MEDS ORDERED: ONDANSETRON 4 MG/2 ML INJ ONE (12:51)
--- NOTE | 2020-03-22 13:14 | Post Anesthesia Evaluation ---
- Post Anesthesia Evaluation Patient Participated: Yes Airway Patent: Yes Stable Respiratory Function: Yes Nausea/Vomiting: No Temp > 96.8F: Yes Pain Manageable: Yes Adequeate Hydration: Yes Anesthesia Complications: No Block Receding Appropriately: Not Applicable Patient on Ventilator: No
--- NOTE | 2020-03-22 13:16 | Post Operative Note ---
Date of procedure: 03/22/20 Pre-op diagnosis: retained IUD Post-op diagnosis: same Findings: See procedure below Procedure: Procedure: Removal of IUD under anesthesia. Hysteroscopy did not end up being necessary. Patient taken to the operating room and prepped and draped in the usual fashion. Single-tooth tenaculum applied to the anterior lip of the cervix. Before starting with a hysteroscopy, a long Gely was used to attempt removal of the IUD 1 last time. Fortunately, the IUD was able to be grasped and removed in its entirety with the Gely clamp. As result, the procedure was concluded without needing to do a hysteroscopy. Single-tooth tenaculum removed. Good hemostasis noted throughout. Patient tolerated the procedure well. All instrument and lap counts were correct. Patient taken to the recovery in stable condition. Anesthesia: LINDSEYA Surgeon: PABLO BRASHER Estimated blood loss: minimal Pathology: none Condition: stable Disposition: PACU
--- NOTE | 2020-03-22 13:17 | Short Stay Summary ---
Short Stay Documentation Date of service: 03/22/20 Narrative H&P: Patient had removal of her IUD under anesthesia. No hysteroscopy was required. Please see H&P and operative report for details. - History H&P: dictated Social history: no significant social history - Allergies and Medications Current Medications: Allergies No Known Allergies Allergy (Verified 03/21/20 10:02) Home Medications Medication Instructions Recorded Confirmed Last Taken Type No Known Home Medications [No 03/21/20 03/22/20 Unknown History Reported Home Medications] Active Medications Hydromorphone HCl (Dilaudid) 0.25 mg IV Q10MIN PRN PRN Reason: Pain, Moderate (4-6) Stop: 03/22/20 23:00 Hydromorphone HCl (Dilaudid) 0.5 mg IV Q10MIN PRN PRN Reason: Pain , Severe (7-10) Stop: 03/22/20 23:00 Lactated Ringer's (Lactated Ringers) 1,000 mls @ 125 mls/hr IV DIRECT DOMENICA Last Admin: 03/22/20 12:05 Dose: 125 mls/hr Documented by: Midazolam HCl (Versed) 2 mg IV PREOP NR Stop: 03/22/20 23:59 Last Admin: 03/22/20 12:10 Dose: 2 mg Documented by: Ondansetron HCl (Zofran) 4 mg IV ONCE PRN PRN Reason: Nausea And Vomiting Stop: 03/22/20 23:00 - Disposition Condition at discharge: Stable Disposition: DC-01 TO HOME OR SELFCARE - Discharge Diagnoses (1) Malpositioned IUD Status: Acute Short Stay Discharge Plan Follow up with: PABLO BRASHER MD [Staff Physician] - 04/21/20
[2020-03-22 17:48] VITALS: BP 127/83
== END 2020-03-22 10:40 | disposition home or self-care (01) ==
LOC: OR 10:39
PROVIDERS: ATTEND Obstetrics & Gynecology
DX: Z30.432 Encounter for removal of intrauterine contraceptive device (principal); T83.32XA Displacement of intrauterine contraceptive device, initial encounter; D64.9 Anemia, unspecified; G43.909 Migraine, unspecified, not intractable, without status migrainosus; K21.9 Gastro-esophageal reflux disease without esophagitis; Z98.890 Other specified postprocedural states; Z83.3 Family history of diabetes mellitus; Z82.49 Family history of ischemic heart disease and other diseases of the circulatory system; Y82.8 Other medical devices associated with adverse incidents; Y92.89 Other specified places as the place of occurrence of the external cause
CPT/HCPCS: 58301; 81025; 88300; A4217; J1170; J2250; J2405; J2704; J7120; 88302